=== PATIENT | male | born 1975 | race African-American/Black ===

== ENCOUNTER 2022-01-10 13:28 | Inpatient (IN) | payer SELFPAY ==
[2022-01-10 18:47] VITALS: BMI 45.4
[2022-01-10] MEDS ORDERED: Acetaminophen 650 MG Suppository PR PRN (21:26)
[2022-01-10] MEDS ORDERED: Ondansetron ODT 4 MG TAB PO PRN (21:26)
[2022-01-10] MEDS ORDERED: Acetaminophen 325 MG TAB PO PRN (21:26)
[2022-01-10] MEDS ORDERED: Ondansetron PF 4 MG/2 ML Vial IVP PRN (21:26)
[2022-01-10] MEDS ORDERED: Nitroglycerin 0.4 MG TAB (25 Tab Bottle) SL PRN (21:40)
[2022-01-10] MEDS ORDERED: Lorazepam 0.5 MG TAB PO PRN (21:42)
[2022-01-11 02:23] LABS: Troponin I Less than 0.010 ng/mL (< 0.028)
[2022-01-11 05:18] LABS: #Eosinphils 0.1 thou/uL (0.0-0.7); #Lymphocytes 4.8 thou/uL (1.20-3.40); #Monocytes 0.5 thou/uL (0.11-0.59); #Neutrophils 5.6 thou/uL (1.40-6.50); %Basophils 0.4 % (0.0-1.0); %Lymphocytes 43.2 % (21.0-51.0); %Monocytes 4.9 % (0.0-10.0); %Neutrophils 50.5 % (42.0-75.0); Hemoglobin 15.4 g/dL (14.0-18.0); Mean Corpuscular HGB CONC 33.7 g/dL (32.0-36.0); Mean Corpuscular Hemoglobin 29.2 pg (27.0-31.0); Mean Corpuscular Volume 86.8 fL (78.0-98.0); Mean Platelet Volume 8.1 fL (7.4-10.4); Platelet Count 170 thou/uL (130-400); RBC Distribution Width 13.1 % (11.5-14.5); Red Blood Cell (RBC) Count 5.25 mill/uL (4.70-6.10)
[2022-01-11 05:39] LABS: Anion Gap 13 mmol/L (10-20); BUN (Urea Nitrogen) 16 mg/dL (8.9-20.6); Calc. Creatinine Clearance 230 mL/min (70-130); Calcium 9.1 mg/dL (7.8-10.44); Carbon Dioxide 25 mmol/L (22-29); Chloride 104 mmol/L (98-107); Glucose 102 mg/dL (70-105); Potassium 4.2 mmol/L (3.5-5.1); Sodium 138 mmol/L (136-145)
[2022-01-11] MEDS ORDERED: Regadenoson 0.4 MG/5 ML SYRINGE ONE (10:28)
[2022-01-11] MEDS: Enoxaparin Sodium 40 MG/0.4 ML SYRINGE SC SCH ×2 (14:01→16:59)
[2022-01-11] MEDS: Aspirin Chewable 81 MG TAB PO SCH (14:01)
[2022-01-11] MEDS: Carvedilol 3.125 MG TAB PO SCH (16:58)
[2022-01-11] MEDS: Atorvastatin Calcium 40 MG TAB PO SCH (20:35)
[2022-01-12] MEDS: Aspirin Chewable 81 MG TAB PO SCH (08:07)
[2022-01-12] MEDS: Enoxaparin Sodium 40 MG/0.4 ML SYRINGE SC SCH (08:07)
[2022-01-12] MEDS: Carvedilol 3.125 MG TAB PO SCH ×2 (08:07→17:46)
[2022-01-12] MEDS: Valsartan 80 MG TAB PO SCH (08:07)
[2022-01-12] MEDS ORDERED: Baclofen 10 MG TAB PO PRN (16:06)
[2022-01-12] MEDS: Atorvastatin Calcium 40 MG TAB PO SCH (21:09)
[2022-01-12] MEDS ORDERED: Docusate 100 MG CAP PO PRN (21:13)
[2022-01-13] MEDS: Carvedilol 3.125 MG TAB PO SCH ×2 (07:19→17:15)
[2022-01-13] MEDS: Aspirin Chewable 81 MG TAB PO SCH (07:19)
[2022-01-13] MEDS: Enoxaparin Sodium 40 MG/0.4 ML SYRINGE SC SCH (07:20)
[2022-01-13] MEDS: Valsartan 80 MG TAB PO SCH (07:20)
[2022-01-13] MEDS: Potassium Chloride 10 MEQ TAB PO SCH (07:20)
[2022-01-13] MEDS ORDERED: FLU VACC QS2021-22(6MOS UP)/PF 60 MCG/0.5 ML SYRINGE IM ONE (09:00)
[2022-01-13] MEDS ORDERED: Communication Order-Pharmacy FS SCH (10:45)
[2022-01-13] MEDS: Atorvastatin Calcium 40 MG TAB PO SCH (20:57)
[2022-01-14] MEDS: Potassium Chloride 10 MEQ TAB PO SCH (05:27)
[2022-01-14] MEDS: Valsartan 80 MG TAB PO SCH (05:27)
[2022-01-14] MEDS: Aspirin Chewable 81 MG TAB PO SCH (05:27)
[2022-01-14] MEDS: Carvedilol 3.125 MG TAB PO SCH ×2 (05:27→15:45)
[2022-01-14] MEDS ORDERED: Lidocaine 1% (PF) 30 ML VIAL ONE (06:33)
[2022-01-14] MEDS ORDERED: Fentanyl 100 MCG/2 ML VIAL ONE (07:07)
[2022-01-14] MEDS ORDERED: Midazolam HCl 2 mg/2 ml Vial ONE (07:07)
[2022-01-14] MEDS ORDERED: Acetaminophen/Codeine 30-300mg Tablet PO PRN ×2 (08:25)
[2022-01-14] MEDS ORDERED: Nitroglycerin 0.4 MG TAB (25 Tab Bottle) SL PRN (08:25)
[2022-01-14] MEDS ORDERED: Sodium Chloride 0.9% 200 ML IV PRN (08:25)
[2022-01-14] MEDS ORDERED: Iopamidol 370 76% 100 ML VIAL ONE (10:23)
[2022-01-14 11:42] VITALS: BP 121/57; TEMP 98.3
== END 2022-01-14 16:14 | disposition home or self-care (01) | DRG 287 ==
LOC: 2SW 13:28 → OBSVTOIN 01-11 16:22
PROVIDERS: ADMIT Internal Medicine; ATTEND Family Medicine
PROC: 4A023N7 Measurement of Cardiac Sampling and Pressure, Left Heart, Percutaneous Approach (ICD-10-PCS; principal; 2022-01-14)
PROC: B2111ZZ Fluoroscopy of Multiple Coronary Arteries using Low Osmolar Contrast (ICD-10-PCS; 2022-01-14)
PROC: B2151ZZ Fluoroscopy of Left Heart using Low Osmolar Contrast (ICD-10-PCS; 2022-01-14)
DX: R07.89 Other chest pain (principal); G11.4 Hereditary spastic paraplegia; Z68.42 Body mass index [BMI] 45.0-49.9, adult; I10 Essential (primary) hypertension; E11.9 Type 2 diabetes mellitus without complications; F17.210 Nicotine dependence, cigarettes, uncomplicated; E66.01 Morbid (severe) obesity due to excess calories; F41.9 Anxiety disorder, unspecified; G47.30 Sleep apnea, unspecified; K59.00 Constipation, unspecified; R00.1 Bradycardia, unspecified; Z28.21 Immunization not carried out because of patient refusal; Z79.899 Other long term (current) drug therapy; Z79.84 Long term (current) use of oral hypoglycemic drugs; Z79.82 Long term (current) use of aspirin; Z82.49 Family history of ischemic heart disease and other diseases of the circulatory system
CPT/HCPCS: 36415; 78452; 80048; 84484; 85025; 93017; 93306; 93458; 94760; 99152; A9500; G0378; J1650; J2001; J2250; J2785; J3010; Q9967